=== PATIENT | female | born 1995 | race Caucasian/White ===

== ENCOUNTER 2018-09-02 05:26 | Day surgery (SDC) | payer OTHER ==
[2018-09-02] MEDS ORDERED: MIDAZOLAM 1 MG/ML 2 ML INJ (06:48)
[2018-09-02] MEDS ORDERED: FENTAnyl 50 MCG/ML VIAL (06:48)
[2018-09-02] MEDS: ROPIVACAINE 0.5 % 30 ML VIAL (08:35)
[2018-09-02] MEDS: POVIDONE IODINE 10% 28.4 GM OINT (09:30)
[2018-09-02] MEDS ORDERED: ROPIVACAINE 0.5 % 30 ML VIAL (09:30)
[2018-09-02] MEDS: POLYMYXIN/BACITRACIN 1L IRRIG (09:30)
[2018-09-02] MEDS ORDERED: DEXAMETHASONE 4 MG/ML 5 ML INJ (11:41)
[2018-09-02] MEDS ORDERED: ONDANSETRON 4 MG INJ (11:41)
[2018-09-02] MEDS ORDERED: METOCLOPRAMIDE 10 MG INJ (11:41)
[2018-09-02] MEDS ORDERED: PROPOFOL 20 ML (12:10)
[2018-09-02] MEDS ORDERED: ROCURONIUM 50 MG INJ (12:10)
[2018-09-02] MEDS ORDERED: LIDOCAINE 2% (SDV) 5 ML INJ (12:10)
[2018-09-02] MEDS ORDERED: MEPERIDINE 25 MG INJ IV (12:30)
[2018-09-02] MEDS ORDERED: HYDROmorphONE 1 MG/5 ML IV SYRINGE IV ×2 (12:30)
[2018-09-02] MEDS ORDERED: FENTAnyl 50 MCG/ML VIAL IV (12:30)
[2018-09-02] MEDS ORDERED: DIPHENHYDRAMINE 50 MG INJ IV (12:30)
[2018-09-02] MEDS ORDERED: SOD CHLORIDE 0.9% 1,000 ML IV (12:35)
[2018-09-02] MEDS ORDERED: ONDANSETRON 4 MG INJ IV (13:00)
[2018-09-02] MEDS ORDERED: morphine 2 MG INJ IV (13:00)
[2018-09-02] MEDS ORDERED: OXYCODONE/ACETAMINOPHEN (5/325) TAB PO ×2 (13:00)
== END 2018-09-02 14:01 | disposition home or self-care (01) ==
LOC: SDS 05:26
DX: M25.372 Other instability, left ankle (principal); M65.872 Other synovitis and tenosynovitis, left ankle and foot; S93.492D Sprain of other ligament of left ankle, subsequent encounter; X58.XXXD Exposure to other specified factors, subsequent encounter
CPT/HCPCS: 27696